=== PATIENT | female | born 1975 | race Caucasian/White ===

== ENCOUNTER 2019-02-13 17:26 | Emergency (ER) | payer BC ==
[2019-02-13 17:30] VITALS: BP 115/71; PULSE 77; RESP 18; TEMP 98.1
--- NOTE | 2019-02-13 17:45 | ED ---
General Adult HPI - General Chief complaint: Upper Respiratory Infection Stated complaint: Sinus infection Time Seen by Provider: 02/13/19 17:40 Source: patient Mode of arrival: ambulatory Limitations: no limitations - History of Present Illness Initial comments: Patient is a 43-year-old female with history of recurrent sinus infections presenting to emergency Department with a chief complaint of sinus infection. Patient reports she is having sinus congestion for about 2-3 weeks. Patient reports green nasal discharge and a sinus headache. Patient reports she is typically treated with antibiotics. Patient is a smoker. Patient reports she has an appointment scheduled with the primary care and is seeking to see an ENT specialist. Patient denies taking any medication to alleviate his symptoms. Patient denies any night sweats or chills. - Related Data Home Medications Medication Instructions Recorded Confirmed Sertraline HCl [Zoloft] 200 mg PO DAILY 12/05/13 12/05/13 Previous Rx's Medication Instructions Recorded Albuterol Inhaler [Ventolin Hfa 2 puff INHALATION Q4HR PRN #1 12/05/13 Inhaler] inhaler Amoxicillin/Potassium Clav 1 each PO Q12HR #20 tab 12/05/13 [Augmentin 875-125 Tablet] Fluticasone Propionate [Flonase] 1 spray EA NOSTRIL BID #1 pkg 12/05/13 Amoxicillin/Potassium Clav 1 tab PO Q12HR #20 tab 02/13/19 [Augmentin 875-125 Tablet] Allergies Allergy/AdvReac Type Severity Reaction Status Date / Time No Known Allergies Allergy Verified 02/13/19 17:30 Review of Systems ROS Statement: Those systems with pertinent positive or pertinent negative responses have been documented in the HPI. ROS Other: All systems not noted in ROS Statement are negative. Past Medical History Additional Past Medical History / Comment(s): OCD History of Any Multi-Drug Resistant Organisms: None Reported Past Surgical History: Section Additional Past Surgical History / Comment(s): nasal Past Psychological History: Anxiety, Depression Smoking Status: Current every day smoker Past Alcohol Use History: Occasional Past Drug Use History: None Reported General Exam Limitations: no limitations General appearance: alert, in no apparent distress Head exam: Present: atraumatic, normocephalic, normal inspection Eye exam: Present: normal appearance, PERRL, EOMI Pupils: Present: normal accommodation ENT exam: Present: normal exam, normal oropharynx, mucous membranes moist, TM's normal bilaterally, normal external ear exam, other (Maxillary frontal sinus tenderness) Neck exam: Present: normal inspection, full ROM Respiratory exam: Present: normal lung sounds bilaterally Cardiovascular Exam: Present: regular rate, normal rhythm, normal heart sounds Extremities exam: Present: normal inspection, full ROM Back exam: Present: normal inspection, full ROM Neurological exam: Present: alert, oriented X3 Psychiatric exam: Present: normal affect, normal mood Skin exam: Present: warm, dry, intact, normal color Course Vital Signs 02/13/19 02/13/19 17:29 17:30 Temperature 98.1 F Pulse Rate 77 Respiratory 18 18 Rate Blood Pressure 115/71 O2 Sat by Pulse 99 Oximetry Medical Decision Making - Medical Decision Making Patient is a 43-year-old female with history of recurrent sinusitis is presenting to the emergency department with a chief complaint of a sinus headache. On exam patient does have frontal and maxillary sinus tenderness on palpation. Rest of exam is unremarkable. Considering the patient has had the symptoms for over 2 weeks similar to treat her with Augmentin. Patient will be treated for 10 days with Augmentin. I counseled the patient for smoking cessation for greater than 3 minutes. Patient advised to return to emergency department if symptoms worsen. Strict return parameters were thoroughly discussed with patient was understanding and agreeable. Case discussed with physician. Disposition Clinical Impression: Sinusitis Disposition: HOME SELF-CARE Condition: Stable Instructions (If sedation given, give patient instructions): Sinusitis (ED) Additional Instructions: Please take prescribed medication as directed. Please follow with primary care. Please return to emergency department if symptoms worsen. Prescriptions: Amoxicillin/Potassium Clav [Augmentin 875-125 Tablet] 1 tab PO Q12HR #20 tab Is patient prescribed a controlled substance at d/c from ED?: No Referrals: Josette Townsend MD [Primary Care Provider] - 1-2 days Time of Disposition: 17:45
== END 2019-02-13 17:48 | disposition home or self-care (01) ==
LOC: EC 17:26
DX: J32.9 Chronic sinusitis, unspecified (principal); Z71.6 Tobacco abuse counseling; F32.9 Major depressive disorder, single episode, unspecified; F41.9 Anxiety disorder, unspecified; F17.200 Nicotine dependence, unspecified, uncomplicated; Z79.899 Other long term (current) drug therapy; Z98.890 Other specified postprocedural states
CPT/HCPCS: 99283; 99406

== ENCOUNTER → 2024-01-27 | Outpatient (CLI) | payer BC ==
--- NOTE | 2024-01-28 17:00 | CT ---
EXAMINATION TYPE: CT sinus wo con, CT iac wo con CT DLP: 465 (accession [id number]), 201 (accession [id number]) mGycm, Automated exposure control for dose reduction was used. DATE OF EXAM: 01/27/2024 3:33 PM COMPARISON: CT sinus 03/12/2014. CLINICAL INDICATION:Female, 48 years old with history of J32.0 CHRONIC MAXILLARY SINUSITIS H92.03; PH H, Chronic maxillary sinusitis. (accession [id number]), Bilateral ear infections. (accession [id number]) CONTRAST: None. TECHNIQUE: Multiple thin axial images were obtained through the paranasal sinuses without the use of IV contrast. Additional coronal and sagittal reformatted images were submitted for evaluation. CT sca n of internal auditory canal is performed without contrast, thin cut axial images are obtained, coron al reformatted images are also reviewed. Automated exposure control for dose reduction was used. FINDINGS: Frontal sinuses: Hypoplasia of the bilateral frontal sinuses without mucosal sinus thickening. Fronta l Recess: Clear Maxillary Sinuses: Normally developed and aerated. Postsurgical changes from bilateral medial maxilla ry wall antrostomy. Maxillary Infundibula([facility]): Postsurgical changes bilaterally. Ethmoid sinuses: Normally developed and aerated. Postsurgical changes from bilateral ethmoidectomy Sphenoid sinuses: Normally developed and aerated. There is sellar sphenoid sinus pneumatization witho ut evidence of dehiscence. No dehiscence of carotid canal. No evidence of optic nerve dehiscence wit hin the sphenoid sinus. No evidence of Onodi cells. Sphenoethmoidal recesses: Clear. Nasal septum: Within normal limits.. Nasal Turbinates: Within normal limits. Mastoid air cells & middle ears: The air cells are clear. The middle ears are grossly unremarkable. Modified Soft tissues & Brain: Partially seen without gross abnormality. Globes are intact. Other: Cribriform plate demonstrates symmetric Keros classification type 2 cribriform plate. No evidence of bony dehiscence of skull base. Lamina papyracea is intact without evidence of remote orbital fracture or orbital prolapse into the e thmoid sinus. IMPRESSION: Postsurgical changes from bilateral maxillary antrostomy and ethmoidectomy. No evidence for significa nt paranasal sinus disease. CT IAC: FINDINGS: The external auditory canals are patent bilaterally. Mastoid air cells show no evidence of abnormal opacification bilaterally. The middle ear ossicles are symmetric and unremarkable. There is no evidence of suspicious surrounding soft tissue density to suggest cholesteatoma. The scutum is preserved bilaterally. The cochlea and the semicircular canals are symmetric and unremarkable. Ves tibular aqueduct and internal carotid canal appear unremarkable. Temporomandibular joints are maintained bilaterally. Visualized portion brain parenchyma is felt wit hin normal limits. IMPRESSION: No significant abnormality seen to account for patient's symptoms. [facility], , 01/28/2024 4:58 PM
== END | disposition home or self-care (01) ==
LOC: RADCTMAIN 14:47
PROVIDERS: ATTEND Otolaryngology
DX: J32.0 Chronic maxillary sinusitis (principal); H92.03 Otalgia, bilateral
CPT/HCPCS: 70480; 70486